=== PATIENT | female | born 1945 | race Caucasian/White ===

== ENCOUNTER 2019-06-13 15:22 | Emergency (ER) | payer MEDICARE, MEDICAID ==
[~2019-06-13] VITALS: Ht 172.7 cm; Wt 81.8 kg
[~2019-06-13 15:22] MED LIST: ASPI-1265 PO; ATOR10TA PO; CYCL-394 PO; NORCO10T PO; OMEP40CA13 PO
[2019-06-13] MEDS ORDERED: rabies vaccine (PCEC)/PF 2.5 unit kit IM ONE (16:15)
[2019-06-13] MEDS ORDERED: HYDROcodone/acetaminophen 5mg/325mg tablet PO ONE (16:15)
[2019-06-13] MEDS ORDERED: rabies immune globulin/PF 150 unit/ml inj IM ONE (16:15)
[2019-06-13] MEDS ORDERED: TETanus/Pertussis (Acell)/Diphther VAC/PF (Tdap-Adult) 0.5ml syringe IM ONE (16:15)
[2019-06-13] MEDS ORDERED: metroNIDAZOLE-Flagyl 500mg/NS 100 ML IV STA (16:42)
[2019-06-13] MEDS ORDERED: amox tr/potassium clavulanate 875/125mg TAB PO ONE (16:45)
[2019-06-13] MEDS ORDERED: CefTRIAXone 1000mg IM Kit (w/lidocaine diluent) IM ONE (16:45)
--- NOTE | 2019-06-13 16:45 | NUR ---
RABIES/TDAP EDUCATION PROVIDED.
[2019-06-13 17:01] LABS: BASOPHILS # (AUTO) 0.1 X10'3 (0-0.2); BASOPHILS % (AUTO) 0.9 % (0-1); EOSINOPHILS # (AUTO) 0.1 X10'3 (0-0.9); EOSINOPHILS % (AUTO) 0.9 % (0-6); HEMATOCRIT 34.8 % (35.0-45.0); HEMOGLOBIN 12.1 g/dl (12.0-16.0); LYMPHOCYTES # (AUTO) 1.9 X10'3 (1.1-4.8); LYMPHOCYTES % (AUTO) 26.5 % (21-51); MEAN CORPUSCULAR HEMOGLOBIN 32.6 PG (27.0-31.0); MEAN CORPUSCULAR HGB CONC 34.8 g/dL (33.0-36.5); MEAN CORPUSCULAR VOLUME 93.8 FL (78-98); MEAN PLATELET VOLUME 10.1 FL (7.4-10.4); MONOCYTES # (AUTO) 0.7 X10'3 (0-0.9); MONOCYTES % (AUTO) 9.3 % (2-12); NEUTROPHILS # (AUTO) 4.4 X10'3 (1.8-7.7); NEUTROPHILS % (AUTO) 62.4 % (42-75); PLATELET COUNT 236 X10'3 (140-440); RED BLOOD COUNT 3.71 X10'6 (4.20-5.60); RED CELL DISTRIBUTION WIDTH 13.3 % (11.5-14.5); WHITE BLOOD COUNT 7.1 X10'3 (4.5-11.0)
[2019-06-13 17:12] LABS: ALBUMIN 3.6 G/DL (3.4-5.0); ANION GAP 10 (8-16); BLOOD UREA NITROGEN 10 MG/DL (7-18); CALCIUM 8.9 MG/DL (8.5-10.1); CHLORIDE 106 MMOL/L (99-107); CREATININE 0.83 MG/DL (0.40-0.90); GLUCOSE 94 MG/DL (70-104); SODIUM 142 MMOL/L (135-145); TOTAL CARBON DIOXIDE 25.7 MMOL/L (24-32); eGFR 67 ML/MIN
[2019-06-13] MEDS ORDERED: CefTRIAXone/D5W-Rocephin 1gm 50 ML IV ONE (17:15)
[2019-06-13] MEDS ORDERED: potassium chloride 10mEq CAPSULE.SA PO ONE (17:25)
[2019-06-13] MEDS ORDERED: potassium Cl 10 mEq/100mL bag IV ONE (17:25)
[2019-06-13] MEDS ORDERED: potassium Cl 20 mEq SR tablet PO ONE (17:50)
[2019-06-13 17:57] VITALS: BP 122/60
[2019-06-13] MEDS ORDERED: HYDR-3965 PO (18:01)
[2019-06-13] MEDS ORDERED: AMOX-580 PO (18:01)
--- NOTE | 2019-06-13 18:39 | NUR ---
ASSUMED CARE OF PT FROM OBI Martinez RN. PT RECEIVING IV ABX, ONCE INFUSED HAS 1 HR INFUSION OF POTASSIUM 10 MEQ, THEN WILL BE DC READY. MED WAIT CURRENTLY.
[2019-06-14] MEDS ORDERED: SIMV40TA4 PO (13:53)
[2019-06-14] MEDS ORDERED: HYDR12.5 PO (13:53)
[2019-06-14] MEDS ORDERED: CHOL100046 PO (13:53)
[2019-06-14] MEDS ORDERED: OMEP-50 PO (13:53)
[2019-06-14] MEDS ORDERED: OXYB5TAB16 PO (13:53)
[2019-06-14] MEDS ORDERED: LISI10TA4 PO (13:53)
[2019-06-14] MEDS ORDERED: AMIT10TA6 PO (13:53)
== END 2019-06-13 20:00 | disposition home or self-care (01) ==
LOC: ER 15:23
DX: S61.531A Puncture wound without foreign body of right wrist, initial encounter (principal); S50.811A Abrasion of right forearm, initial encounter; L03.113 Cellulitis of right upper limb; E87.6 Hypokalemia; M19.90 Unspecified osteoarthritis, unspecified site; G89.29 Other chronic pain; E07.9 Disorder of thyroid, unspecified; Z86.73 Personal history of transient ischemic attack (TIA), and cerebral infarction without residual deficits; Z90.49 Acquired absence of other specified parts of digestive tract; Z98.890 Other specified postprocedural states; Z79.82 Long term (current) use of aspirin; Z79.2 Long term (current) use of antibiotics; Z79.899 Other long term (current) drug therapy; Z88.8 Allergy status to other drugs, medicaments and biological substances; W55.01XA Bitten by cat, initial encounter; Y93.89 Activity, other specified; Y92.89 Other specified places as the place of occurrence of the external cause; Y99.8 Other external cause status
CPT/HCPCS: 36415; 80048; 83605; 84145; 85025; 90375; 90471; 90472; 90675; 90715; 96365; 96367; 96368; 96372; 99284; J0696; J3480; J3490; 99283

== ENCOUNTER 2019-06-14 11:20 | Inpatient (IN) | payer MEDICARE, MEDICAID ==
[~2019-06-14] VITALS: Ht 172.7 cm; Wt 81.8 kg
[~2019-06-14 11:20] MED LIST changes: +AMOX-580 PO; +HYDR-3965 PO
[2019-06-14] MEDS ORDERED: normal saline 1000ML IV soln IV ONE (13:00)
[2019-06-14] MEDS ORDERED: piperacillin/tazo 4.5gm/100ml 100 ML IV ONE (13:00)
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
--- NOTE | 2019-06-14 13:21 | NUR ---
PER PRINCIPAL LAW CLERK MARCI: PATIENT MOVED TO ROOM 12 IN MAIN ER
[2019-06-14 13:31] LABS: BASOPHILS # (AUTO) 0.1 X10'3 (0-0.2); EOSINOPHILS # (AUTO) 0.1 X10'3 (0-0.9); EOSINOPHILS % (AUTO) 1.1 % (0-6); HEMATOCRIT 35.4 % (35.0-45.0); HEMOGLOBIN 12.2 g/dl (12.0-16.0); LYMPHOCYTES # (AUTO) 1.9 X10'3 (1.1-4.8); LYMPHOCYTES % (AUTO) 31.5 % (21-51); MEAN CORPUSCULAR HEMOGLOBIN 32.7 PG (27.0-31.0); MEAN CORPUSCULAR HGB CONC 34.3 g/dL (33.0-36.5); MEAN CORPUSCULAR VOLUME 95.3 FL (78-98); MEAN PLATELET VOLUME 10.9 FL (7.4-10.4); MONOCYTES # (AUTO) 0.5 X10'3 (0-0.9); MONOCYTES % (AUTO) 8.1 % (2-12); NEUTROPHILS # (AUTO) 3.4 X10'3 (1.8-7.7); NEUTROPHILS % (AUTO) 58.3 % (42-75); PLATELET COUNT 245 X10'3 (140-440); RED BLOOD COUNT 3.72 X10'6 (4.20-5.60); RED CELL DISTRIBUTION WIDTH 13.3 % (11.5-14.5); WHITE BLOOD COUNT 5.9 X10'3 (4.5-11.0)
[2019-06-14 13:41] LABS: PARTIAL THROMBOPLASTIN TIME 27 SECONDS (22-32)
[2019-06-14 13:44] LABS: ALANINE AMINOTRANSFERASE 25 U/L (12-78); ALBUMIN 3.9 G/DL (3.4-5.0); ALBUMIN/GLOBULIN RATIO 0.8 (1.1-1.5); ALKALINE PHOSPHATASE 76 IU/L (46-116); ANION GAP 15 (8-16); ASPARTATE AMINO TRANSFERASE 20 U/L (10-37); BILIRUBIN,TOTAL 0.7 MG/DL (0.1-1.0); CALCIUM 9.1 MG/DL (8.5-10.1); CHLORIDE 105 MMOL/L (99-107); CREATININE 0.98 MG/DL (0.40-0.90); GLUCOSE 97 MG/DL (70-104); MAGNESIUM 1.9 MG/DL (1.5-2.4); POTASSIUM 3.3 MMOL/L (3.5-5.1); SODIUM 142 MMOL/L (135-145); TOTAL PROTEIN 8.6 G/DL (6.4-8.2); eGFR 55 ML/MIN
[2019-06-14] MEDS ORDERED: HYDR12.5 PO (13:53)
[2019-06-14] MEDS ORDERED: CHOL100046 PO (13:53)
[2019-06-14] MEDS ORDERED: OXYB5TAB16 PO (13:53)
[2019-06-14] MEDS ORDERED: LISI10TA4 PO (13:53)
[2019-06-14] MEDS ORDERED: SIMV40TA4 PO (13:53)
[2019-06-14] MEDS ORDERED: OMEP-50 PO (13:53)
[2019-06-14] MEDS ORDERED: AMIT10TA6 PO (13:53)
[2019-06-14 14:26] LABS: BLOOD UREA NITROGEN 10 MG/DL (7-18); BUN/CREATININE RATIO 10.2 (6.6-38.0)
[2019-06-14] MEDS ORDERED: cyclobenzaprine 10mg tablet PO PRN (14:35)
[2019-06-14] MEDS ORDERED: bisacodyl 10mg suppository rectal RC PRN (14:40)
[2019-06-14] MEDS ORDERED: magnesium Cl slow-release 64mg tablet PO PRN (14:40)
[2019-06-14] MEDS ORDERED: acetaminophen 325mg tablet PO PRN ×2 (14:40)
[2019-06-14] MEDS ORDERED: diphenhydrAMINE 50 mg/ml inj IV PRN (14:40)
[2019-06-14] MEDS ORDERED: morphine 2 MG/ML inj. syringe IV PRN ×2 (14:40)
[2019-06-14] MEDS ORDERED: mag hydrox/Alum hydrox/simeth 30ml oral suspension PO PRN (14:40)
[2019-06-14] MEDS ORDERED: magnesium 2GM in 50ml NS 50 ML IV PRN (14:40)
[2019-06-14] MEDS ORDERED: magnesium hydroxide 30ml (MOM) UD suspension PO PRN (14:40)
[2019-06-14] MEDS ORDERED: potassium CL 10mEq/100ml bag 100 ML IV PRN ×2 (14:40)
[2019-06-14] MEDS ORDERED: acetaminophen 650mg rectal suppository RC PRN (14:40)
[2019-06-14] MEDS ORDERED: ondansetron/PF 4mg/2ml inj IV PRN (14:40)
[2019-06-14] MEDS ORDERED: magnesium 4gm in 100ml NS 100 ML IV PRN (14:40)
[2019-06-14] MEDS ORDERED: potassium Cl 20 mEq SR tablet PO PRN (14:40)
[2019-06-14] MEDS ORDERED: HYDROcodone/acetaminophen 5mg/325mg tablet PO PRN (14:40)
[2019-06-14] MEDS: K and/or MAG REPLACEMENT MC SCH (14:40)
[2019-06-14] MEDS ORDERED: diphenhydrAMINE 25mg capsule PO PRN (14:40)
[2019-06-14] MEDS: normal saline 1000ml 1,000 ML IV SCH (14:48)
[2019-06-14 15:34] LABS: HEMOGLOBIN A1C 5.7 % (4.5-6.2)
[2019-06-14 16:01] LABS: CLARITY,URINE CLOUDY (Clear); COLOR,URINE YELLOW (Yellow); GLUCOSE, URINE NEGATIVE (Neg); KETONES,URINE NEGATIVE (Neg); LEUKOCYTE ESTERASE ,URINE MODERATE (Neg); NITRITES, URINE NEGATIVE (Neg); OCCULT BLOOD,URINE NEGATIVE (Neg); PROTEIN,URINE NEGATIVE (Neg); UROBILINOGEN,URINE 0.2 E.U/dL (0.2-1.0)
[2019-06-14 16:07] LABS: UA COLLECTION TYPE CLN CATCH MIDSTREAM
[2019-06-14 16:08] LABS: BACTERIA,URINE 1+ /HPF (Neg); RBC,URINE NONE SEEN /HPF (0-2); SQUAMOUS EPITHELIAL CELL,UR MODERATE /LPF (FEW)
[2019-06-14 16:09] LABS: MUCUS STRANDS MODERATE /LPF (Neg)
[2019-06-14 18:00] VITALS: BP 132/68
--- NOTE | 2019-06-14 18:05 | NUR ---
Patient in room ORTHO 4007. I have received report from Lulu CACERES and had the opportunity to ask questions and assume patient care.
[2019-06-14] MEDS: HYDROcodone/acetaminophen 10/325mg tab PO PRN (18:49)
[2019-06-14] MEDS: potassium Cl 20 mEq SR tablet PO PRN (18:49)
[2019-06-14] MEDS: piperacillin/tazo 3.375gm/50ml 50 ML IV SCH (18:50)
[2019-06-14] MEDS: amitriptyline 10mg tablet PO SCH (19:18)
[2019-06-14] MEDS: heparin, porcine 5000 units/ml vial SQ SCH (19:18)
[2019-06-14] MEDS: oxybutynin 5mg tablet PO SCH (20:26)
[2019-06-14] MEDS ORDERED: temazepam 15mg capsule PO PRN (21:00)
[2019-06-14 21:40] VITALS: BP 113/54
[2019-06-15] MEDS: potassium Cl 20 mEq SR tablet PO PRN (00:30)
[2019-06-15] MEDS: piperacillin/tazo 3.375gm/50ml 50 ML IV SCH ×3 (01:17→19:46)
[2019-06-15] MEDS: VANCOmycin 1250MG/NS 250ml Bag 250 ML IV SCH ×2 (01:24→14:48)
[2019-06-15 06:00] VITALS: BP 113/55
[2019-06-15 06:14] LABS: BASOPHILS # (AUTO) 0.1 X10'3 (0-0.2); BASOPHILS % (AUTO) 1.3 % (0-1); EOSINOPHILS # (AUTO) 0.2 X10'3 (0-0.9); EOSINOPHILS % (AUTO) 3.9 % (0-6); HEMATOCRIT 29.1 % (35.0-45.0); HEMOGLOBIN 9.9 g/dl (12.0-16.0); LYMPHOCYTES # (AUTO) 1.9 X10'3 (1.1-4.8); LYMPHOCYTES % (AUTO) 47.9 % (21-51); MEAN CORPUSCULAR HEMOGLOBIN 32.7 PG (27.0-31.0); MEAN CORPUSCULAR HGB CONC 34.2 g/dL (33.0-36.5); MEAN CORPUSCULAR VOLUME 95.6 FL (78-98); MEAN PLATELET VOLUME 10.6 FL (7.4-10.4); MONOCYTES # (AUTO) 0.4 X10'3 (0-0.9); MONOCYTES % (AUTO) 10.7 % (2-12); NEUTROPHILS # (AUTO) 1.4 X10'3 (1.8-7.7); NEUTROPHILS % (AUTO) 36.2 % (42-75); PLATELET COUNT 182 X10'3 (140-440); RED BLOOD COUNT 3.04 X10'6 (4.20-5.60); RED CELL DISTRIBUTION WIDTH 13.4 % (11.5-14.5)
--- NOTE | 2019-06-15 06:25 | NUR ---
Problems reprioritized. Patient report given, questions answered & plan of care reviewed with Chuck CACERES.
--- NOTE | 2019-06-15 06:36 | NUR ---
Patient in room ORTHO 4007. I have received report from An CACERES and had the opportunity to ask questions and assume patient care.
[2019-06-15 06:46] LABS: ALANINE AMINOTRANSFERASE 20 U/L (12-78); ALBUMIN 2.7 G/DL (3.4-5.0); ALBUMIN/GLOBULIN RATIO 0.8 (1.1-1.5); ALKALINE PHOSPHATASE 55 IU/L (46-116); ANION GAP 8 (8-16); ASPARTATE AMINO TRANSFERASE 16 U/L (10-37); BILIRUBIN,TOTAL 0.4 MG/DL (0.1-1.0); BLOOD UREA NITROGEN 10 MG/DL (7-18); BUN/CREATININE RATIO 11.4 (6.6-38.0); CALCIUM 8.2 MG/DL (8.5-10.1); CHLORIDE 113 MMOL/L (99-107); CHOL/HDL RATIO 3.4 (0.00-4.99); CHOLESTEROL 98 MG/DL (0-200); CREATININE 0.88 MG/DL (0.40-0.90); GLUCOSE 87 MG/DL (70-104); HDL CHOLESTEROL 29 MG/DL (35-60); LDL CHOLESTEROL 55 MG/DL (50-100); POTASSIUM 3.7 MMOL/L (3.5-5.1); SODIUM 145 MMOL/L (135-145); TOTAL CARBON DIOXIDE 24.4 MMOL/L (24-32); TOTAL PROTEIN 6.3 G/DL (6.4-8.2); TRIGLYCERIDES 72 MG/DL (20-135); eGFR 63 ML/MIN
[2019-06-15 07:06] LABS: PLATELET ESTIMATE NORMAL
[2019-06-15 07:08] LABS: ANISOCYTOSIS 1+; POLYCHROMASIA 1+
[2019-06-15] MEDS: oxybutynin 5mg tablet PO SCH ×3 (07:10→20:40)
[2019-06-15] MEDS: amitriptyline 10mg tablet PO SCH ×2 (07:10→20:40)
[2019-06-15] MEDS: atorvastatin 10mg tablet PO SCH (07:10)
[2019-06-15] MEDS: pantoprazole 40mg Tablet.DR PO SCH (07:10)
[2019-06-15] MEDS: vitamin D (cholecalciferol) 1,000 unit tablet PO SCH (07:11)
[2019-06-15] MEDS: HYDROchlorothiazide 12.5mg capsule PO SCH (07:11)
[2019-06-15] MEDS: lisinopril 10 MG tablet PO SCH (07:11)
[2019-06-15] MEDS: K and/or MAG REPLACEMENT MC SCH (07:12)
[2019-06-15] MEDS: HYDROcodone/acetaminophen 10/325mg tab PO PRN ×3 (07:12→22:39)
[2019-06-15] MEDS: heparin, porcine 5000 units/ml vial SQ SCH ×2 (07:12→20:40)
[2019-06-15] MEDS: normal saline 1000ml 1,000 ML IV SCH ×2 (07:20→10:36)
[2019-06-15 10:00] VITALS: BP 84/52
--- NOTE | 2019-06-15 16:37 | NUR ---
Chuck 2181 Re: Chris. only able to do a 3 sequence half study MRI. unable to tolerate positioning. Do you want MRI to submit study?
[2019-06-15 18:00] VITALS: BP 108/57
--- NOTE | 2019-06-15 18:38 | NUR ---
Problems reprioritized. Patient report given, questions answered & plan of care reviewed with An CACERES.
--- NOTE | 2019-06-15 18:40 | NUR ---
Patient in room ORTHO 4007. I have received report from Chuck CACERES and had the opportunity to ask questions and assume patient care.
[2019-06-15 22:00] VITALS: BP 122/57
[2019-06-16] MEDS: piperacillin/tazo 3.375gm/50ml 50 ML IV SCH ×2 (00:08→08:10)
[2019-06-16] MEDS: VANCOmycin 1250MG/NS 250ml Bag 250 ML IV SCH (01:55)
[2019-06-16] MEDS: HYDROcodone/acetaminophen 10/325mg tab PO PRN ×2 (03:11→09:56)
[2019-06-16 06:00] VITALS: BP 134/58
[2019-06-16 06:10] LABS: BASOPHILS % (AUTO) 1.1 % (0-1); EOSINOPHILS # (AUTO) 0.3 X10'3 (0-0.9); EOSINOPHILS % (AUTO) 6.6 % (0-6); HEMATOCRIT 28.8 % (35.0-45.0); HEMOGLOBIN 9.9 g/dl (12.0-16.0); LYMPHOCYTES # (AUTO) 1.9 X10'3 (1.1-4.8); MEAN CORPUSCULAR HEMOGLOBIN 32.4 PG (27.0-31.0); MEAN CORPUSCULAR HGB CONC 34.5 g/dL (33.0-36.5); MEAN CORPUSCULAR VOLUME 93.9 FL (78-98); MEAN PLATELET VOLUME 10.9 FL (7.4-10.4); MONOCYTES # (AUTO) 0.4 X10'3 (0-0.9); MONOCYTES % (AUTO) 9.4 % (2-12); NEUTROPHILS # (AUTO) 1.2 X10'3 (1.8-7.7); NEUTROPHILS % (AUTO) 31.9 % (42-75); PLATELET COUNT 188 X10'3 (140-440); RED BLOOD COUNT 3.06 X10'6 (4.20-5.60); RED CELL DISTRIBUTION WIDTH 13.4 % (11.5-14.5); WHITE BLOOD COUNT 3.8 X10'3 (4.5-11.0)
--- NOTE | 2019-06-16 06:12 | NUR ---
received report from agustina barker
--- NOTE | 2019-06-16 06:18 | NUR ---
Problems reprioritized. Patient report given, questions answered & plan of care reviewed with Raquel CACERES.
[2019-06-16 06:20] LABS: ALANINE AMINOTRANSFERASE 16 U/L (12-78); ALBUMIN 2.5 G/DL (3.4-5.0); ALBUMIN/GLOBULIN RATIO 0.7 (1.1-1.5); ALKALINE PHOSPHATASE 51 IU/L (46-116); ANION GAP 8 (8-16); ASPARTATE AMINO TRANSFERASE 11 U/L (10-37); BILIRUBIN,TOTAL 0.3 MG/DL (0.1-1.0); BLOOD UREA NITROGEN 6 MG/DL (7-18); BUN/CREATININE RATIO 7.3 (6.6-38.0); CALCIUM 8.1 MG/DL (8.5-10.1); CHLORIDE 110 MMOL/L (99-107); CREATININE 0.82 MG/DL (0.40-0.90); GLUCOSE 102 MG/DL (70-104); MAGNESIUM 1.7 MG/DL (1.5-2.4); PHOSPHORUS 3.9 MG/DL (2.3-4.5); POTASSIUM 3.4 MMOL/L (3.5-5.1); SODIUM 143 MMOL/L (135-145); TOTAL CARBON DIOXIDE 25.1 MMOL/L (24-32); TOTAL PROTEIN 5.9 G/DL (6.4-8.2); eGFR 68 ML/MIN
[2019-06-16] MEDS: K and/or MAG REPLACEMENT MC SCH (07:44)
[2019-06-16] MEDS: pantoprazole 40mg Tablet.DR PO SCH (07:56)
[2019-06-16] MEDS: vitamin D (cholecalciferol) 1,000 unit tablet PO SCH (07:57)
[2019-06-16] MEDS: HYDROchlorothiazide 12.5mg capsule PO SCH (07:57)
[2019-06-16] MEDS: oxybutynin 5mg tablet PO SCH ×2 (07:57→12:58)
[2019-06-16] MEDS: amitriptyline 10mg tablet PO SCH (07:59)
[2019-06-16] MEDS: atorvastatin 10mg tablet PO SCH (07:59)
[2019-06-16] MEDS: lisinopril 10 MG tablet PO SCH (08:01)
[2019-06-16] MEDS: potassium Cl 20 mEq SR tablet PO PRN ×2 (08:02→12:18)
[2019-06-16] MEDS: heparin, porcine 5000 units/ml vial SQ SCH (08:05)
[2019-06-16] MEDS: normal saline 1000ml 1,000 ML IV SCH ×2 (08:08→09:48)
[2019-06-16] MEDS ORDERED: AMOX-580 PO ×2 (09:02→11:06)
[2019-06-16 10:00] VITALS: BP 128/57
--- NOTE | 2019-06-16 13:22 | NUR ---
PT D/C WITH INSTRUCTIONS, UNDERSTANDING OF INSTRUCTIONS AND W/ALL BELONGINGS IN WHEELCHAIR TO PRIVATE VEHICLE TO GO HOME AND F/U W/PCP [facility] 2ND HALF OF RABIES VACCINE
[2019-06-16] MEDS ORDERED: VANCOMYCIN LEVEL IV ONE (13:30)
== END 2019-06-16 13:10 | disposition home or self-care (01) | DRG 603 ==
LOC: ER 11:20 → ORTHO 4S 16:01
PROVIDERS: ADMIT Family Medicine; ATTEND Family Medicine
DX: L03.113 Cellulitis of right upper limb (principal); E78.5 Hyperlipidemia, unspecified; F32.9 Major depressive disorder, single episode, unspecified; I10 Essential (primary) hypertension; K21.9 Gastro-esophageal reflux disease without esophagitis; M79.7 Fibromyalgia; G62.9 Polyneuropathy, unspecified; G89.29 Other chronic pain; M19.90 Unspecified osteoarthritis, unspecified site; Z60.2 Problems related to living alone; M54.9 Dorsalgia, unspecified; W55.01XA Bitten by cat, initial encounter; Z88.8 Allergy status to other drugs, medicaments and biological substances; Z79.899 Other long term (current) drug therapy; Z86.73 Personal history of transient ischemic attack (TIA), and cerebral infarction without residual deficits; Z90.49 Acquired absence of other specified parts of digestive tract; Y93.89 Activity, other specified; Y92.89 Other specified places as the place of occurrence of the external cause; Y99.8 Other external cause status; Z81.1 Family history of alcohol abuse and dependence
CPT/HCPCS: 36415; 71045; 73218; 80053; 80061; 81001; 83036; 83605; 83735; 84100; 84145; 85025; 85610; 85730; 87040; 87081; 87088; 93005; 96361; 96365; 96368; 97110; 97116; 97162; 99285; G0378; J1644; J2543; J3370; J7030

== ENCOUNTER 2019-06-20 14:20 | Emergency (ER) | payer MEDICARE, MEDICAID ==
[~2019-06-20] VITALS: Ht 172.7 cm; Wt 82.7 kg
[~2019-06-20 14:20] MED LIST changes: +AMIT10TA6 PO; -ASPI-1265 PO; -ATOR10TA PO; +CHOL100046 PO; -HYDR-3965 PO; +HYDR12.5 PO; +LISI10TA4 PO; +OMEP-50 PO; -OMEP40CA13 PO; +OXYB5TAB16 PO; +SIMV-45 PO
[2019-06-20 14:22] VITALS: BP 136/87
[2019-06-20] MEDS ORDERED: rabies vaccine (PCEC)/PF 2.5 unit kit IMVAC ONE (15:10)
[2019-06-20] MEDS ORDERED: HYDROcodone/acetaminophen 5mg/325mg tablet PO ONE (15:10)
== END 2019-06-20 15:59 | disposition home or self-care (01) ==
LOC: ER 14:20
DX: S41.151D Open bite of right upper arm, subsequent encounter (principal); Z23 Encounter for immunization; M19.90 Unspecified osteoarthritis, unspecified site; G89.29 Other chronic pain; M79.7 Fibromyalgia; Z86.73 Personal history of transient ischemic attack (TIA), and cerebral infarction without residual deficits; Z90.49 Acquired absence of other specified parts of digestive tract; Z98.890 Other specified postprocedural states; Z60.2 Problems related to living alone; Z88.8 Allergy status to other drugs, medicaments and biological substances; Z79.82 Long term (current) use of aspirin; Z79.899 Other long term (current) drug therapy; W55.01XD Bitten by cat, subsequent encounter
CPT/HCPCS: 90471; 90675; 99284

== ENCOUNTER 2020-05-12 20:30 | Emergency (ER) | payer BC, MEDICAID ==
[~2020-05-12] VITALS: Ht 170.2 cm; Wt 84.6 kg
[~2020-05-12 20:30] MED LIST changes: -AMOX-580 PO
[2020-05-12 21:42] LABS: BASOPHILS % (AUTO) 0.7 % (0-1); EOSINOPHILS # (AUTO) 0.2 X10'3 (0-0.9); HEMATOCRIT 33.1 % (35.0-45.0); HEMOGLOBIN 11.5 g/dl (12.0-16.0); LYMPHOCYTES # (AUTO) 1.8 X10'3 (1.1-4.8); LYMPHOCYTES % (AUTO) 30.3 % (21-51); MEAN CORPUSCULAR HEMOGLOBIN 34.1 PG (27.0-31.0); MEAN CORPUSCULAR HGB CONC 34.6 g/dL (33.0-36.5); MEAN CORPUSCULAR VOLUME 98.4 FL (78-98); MEAN PLATELET VOLUME 9.8 FL (7.4-10.4); MONOCYTES # (AUTO) 0.7 X10'3 (0-0.9); MONOCYTES % (AUTO) 11.4 % (2-12); NEUTROPHILS # (AUTO) 3.1 X10'3 (1.8-7.7); NEUTROPHILS % (AUTO) 53.6 % (42-75); PLATELET COUNT 179 X10'3 (140-440); RED BLOOD COUNT 3.37 X10'6 (4.20-5.60); RED CELL DISTRIBUTION WIDTH 13.1 % (11.5-14.5); WHITE BLOOD COUNT 5.8 X10'3 (4.5-11.0)
[2020-05-12 21:52] LABS: ALANINE AMINOTRANSFERASE 24 U/L (12-78); ALBUMIN 3.6 G/DL (3.4-5.0); ALBUMIN/GLOBULIN RATIO 0.9 (1.1-1.5); ALKALINE PHOSPHATASE 69 IU/L (46-116); ANION GAP 6 (8-16); ASPARTATE AMINO TRANSFERASE 19 U/L (10-37); BILIRUBIN,TOTAL 0.3 MG/DL (0.1-1.0); BLOOD UREA NITROGEN 10 MG/DL (7-18); CHLORIDE 100 MMOL/L (99-107); CREATININE 0.91 MG/DL (0.40-0.90); GLUCOSE 101 MG/DL (70-104); POTASSIUM 3.4 MMOL/L (3.5-5.1); SODIUM 139 MMOL/L (135-145); TOTAL CARBON DIOXIDE 33.5 MMOL/L (24-32); TOTAL PROTEIN 7.5 G/DL (6.4-8.2); eGFR 60 ML/MIN
[2020-05-12 22:01] LABS: TROPONIN I < 0.04 NG/ML (0.0-0.05)
[2020-05-12 22:20] VITALS: BP 124/68
[2020-05-12] MEDS ORDERED: furosemide 10 MG/1 ML 10ml inj IV ONE (22:20)
[2020-05-12] MEDS ORDERED: sulfamethoxazole/trimethoprim DS (800/160mg) tablet PO ONE (22:25)
[2020-05-12] MEDS ORDERED: piperacillin/tazo 3.375gm/50ml 50 ML IV ONE (22:25)
[2020-05-12] MEDS ORDERED: BACDS PO (22:29)
[2020-05-12] MEDS ORDERED: FURO-150 PO (22:29)
[2020-05-12] MEDS ORDERED: CEPH500C5 PO (22:29)
== END 2020-05-12 23:11 | disposition home or self-care (01) ==
LOC: ER 20:31
DX: L03.116 Cellulitis of left lower limb (principal); M79.89 Other specified soft tissue disorders; G62.9 Polyneuropathy, unspecified; M19.90 Unspecified osteoarthritis, unspecified site; G89.29 Other chronic pain; Z86.73 Personal history of transient ischemic attack (TIA), and cerebral infarction without residual deficits; Z90.49 Acquired absence of other specified parts of digestive tract; Z98.890 Other specified postprocedural states; Z88.8 Allergy status to other drugs, medicaments and biological substances; Z79.899 Other long term (current) drug therapy
CPT/HCPCS: 36415; 80053; 83880; 84484; 85025; 96365; 96375; 99284; J1940; J2543; 96361; 96374; 99283

== ENCOUNTER 2021-11-14 14:20 | Inpatient (IN) | payer BC, MEDICAID ==
[~2021-11-14] VITALS: Ht 170.2 cm; Wt 85.0 kg
[~2021-11-14 14:20] MED LIST changes: +LISI10TA27 PO; -LISI10TA4 PO; -OMEP-50 PO; +OMEP20CA16 PO
[2021-11-14 15:09] LABS: ALANINE AMINOTRANSFERASE 27 U/L (12-78); ALBUMIN 3.5 G/DL (3.4-5.0); ALBUMIN/GLOBULIN RATIO 1.1 (1.1-1.5); ALKALINE PHOSPHATASE 66 IU/L (46-116); ANION GAP 6 (8-16); ASPARTATE AMINO TRANSFERASE 20 U/L (10-37); BASOPHILS % (AUTO) 0.5 % (0-1); BILIRUBIN,TOTAL 0.3 MG/DL (0.1-1.0); BLOOD UREA NITROGEN 18 MG/DL (7-18); BUN/CREATININE RATIO 18.2 (6.6-38.0); CALCIUM 8.3 MG/DL (8.5-10.1); CHLORIDE 102 MMOL/L (99-107); CREATININE 0.99 MG/DL (0.40-0.90); EOSINOPHILS # (AUTO) 0.1 X10'3 (0-0.9); EOSINOPHILS % (AUTO) 2.9 % (0-6); GLUCOSE 118 MG/DL (70-104); HEMATOCRIT 37.1 % (35.0-45.0); HEMOGLOBIN 12.4 g/dl (12.0-16.0); LYMPHOCYTES # (AUTO) 1.9 X10'3 (1.1-4.8); LYMPHOCYTES % (AUTO) 43.9 % (21-51); MEAN CORPUSCULAR HEMOGLOBIN 31.9 PG (27.0-31.0); MEAN CORPUSCULAR HGB CONC 33.3 g/dL (33.0-36.5); MEAN CORPUSCULAR VOLUME 95.8 FL (78-98); MEAN PLATELET VOLUME 10.6 FL (7.4-10.4); MONOCYTES # (AUTO) 0.4 X10'3 (0-0.9); MONOCYTES % (AUTO) 10.1 % (2-12); NEUTROPHILS # (AUTO) 1.9 X10'3 (1.8-7.7); NEUTROPHILS % (AUTO) 42.6 % (42-75); PLATELET COUNT 186 X10'3 (140-440); POTASSIUM 3.8 MMOL/L (3.5-5.1); RED BLOOD COUNT 3.87 X10'6 (4.20-5.60); RED CELL DISTRIBUTION WIDTH 13.2 % (11.5-14.5); SODIUM 139 MMOL/L (135-145); TOTAL CARBON DIOXIDE 30.7 MMOL/L (24-32); TOTAL PROTEIN 6.8 G/DL (6.4-8.2); WHITE BLOOD COUNT 4.4 X10'3 (4.5-11.0); eGFR 54 ML/MIN
[2021-11-14] MEDS ORDERED: normal saline 1000ML IV soln IVB ONE (16:10)
[2021-11-14 18:14] LABS: CLARITY,URINE CLOUDY (Clear); COLOR,URINE YELLOW (Yellow); GLUCOSE, URINE NEGATIVE (Neg); KETONES,URINE NEGATIVE (Neg); LEUKOCYTE ESTERASE ,URINE MODERATE (Neg); NITRITES, URINE POSITIVE (Neg); OCCULT BLOOD,URINE TRACE-INTACT (Neg); PROTEIN,URINE NEGATIVE (Neg); UROBILINOGEN,URINE 0.2 E.U/dL (0.2-1.0)
[2021-11-14 18:16] LABS: UA COLLECTION TYPE NON-SPECIFIED
[2021-11-14 18:19] LABS: BACTERIA,URINE 4+ /HPF (Neg); RBC,URINE 0-2 /HPF (0-2); SQUAMOUS EPITHELIAL CELL,UR FEW /LPF (FEW); WBC,URINE 50-100 /HPF (0-4)
[2021-11-14] MEDS ORDERED: AMIT150T PO (19:27)
[2021-11-14] MEDS ORDERED: CALC-723 PO (19:27)
[2021-11-14] MEDS ORDERED: DULO30CA52 PO (19:27)
[2021-11-14] MEDS ORDERED: CefTRIAXone 2gm/D5W 50ml BAG 50 ML IV ONE (19:50)
[2021-11-14] MEDS ORDERED: potassium Cl 20 mEq SR tablet PO PRN ×2 (20:35)
[2021-11-14] MEDS ORDERED: potassium CL 10mEq/100ml bag 100 ML IV PRN (20:35)
[2021-11-14] MEDS ORDERED: magnesium Cl slow-release 64mg tablet PO PRN (20:35)
[2021-11-14] MEDS ORDERED: magnesium 4gm in 100ml NS 100 ML IV PRN (20:35)
[2021-11-14] MEDS ORDERED: acetaminophen 325mg tablet PO PRN ×2 (20:35)
[2021-11-14] MEDS ORDERED: magnesium 2GM in 50ml NS 50 ML IV PRN (20:35)
[2021-11-14] MEDS ORDERED: ondansetron/PF 4mg/2ml inj IV PRN (20:35)
[2021-11-14] MEDS: normal saline 1000ml 1,000 ML IV SCH (20:45)
[2021-11-14] MEDS ORDERED: HYDR-3972 PO (21:03)
[2021-11-14] MEDS ORDERED: CYCL-1 PO (21:03)
[2021-11-14] MEDS: HYDROcodone/acetaminophen 5mg/325mg tablet PO PRN (23:52)
[2021-11-15] VITALS (10 sets, daily range): BP systolic 91–132; BP diastolic 39–86
[2021-11-15 02:06] LABS: BASOPHILS % (AUTO) 0.6 % (0-1); EOSINOPHILS # (AUTO) 0.1 X10'3 (0-0.9); EOSINOPHILS % (AUTO) 2.6 % (0-6); HEMATOCRIT 34.7 % (35.0-45.0); HEMOGLOBIN 11.6 g/dl (12.0-16.0); LYMPHOCYTES # (AUTO) 2.1 X10'3 (1.1-4.8); LYMPHOCYTES % (AUTO) 43.8 % (21-51); MEAN CORPUSCULAR HEMOGLOBIN 31.9 PG (27.0-31.0); MEAN CORPUSCULAR HGB CONC 33.4 g/dL (33.0-36.5); MEAN CORPUSCULAR VOLUME 95.5 FL (78-98); MEAN PLATELET VOLUME 10.2 FL (7.4-10.4); MONOCYTES # (AUTO) 0.5 X10'3 (0-0.9); MONOCYTES % (AUTO) 10.3 % (2-12); NEUTROPHILS % (AUTO) 42.7 % (42-75); PLATELET COUNT 171 X10'3 (140-440); RED BLOOD COUNT 3.63 X10'6 (4.20-5.60); RED CELL DISTRIBUTION WIDTH 13.3 % (11.5-14.5); WHITE BLOOD COUNT 4.8 X10'3 (4.5-11.0)
[2021-11-15 02:23] LABS: ALANINE AMINOTRANSFERASE 26 U/L (12-78); ALBUMIN 3.2 G/DL (3.4-5.0); ALBUMIN/GLOBULIN RATIO 1.1 (1.1-1.5); ALKALINE PHOSPHATASE 62 IU/L (46-116); ANION GAP 8 (8-16); ASPARTATE AMINO TRANSFERASE 20 U/L (10-37); BILIRUBIN,TOTAL 0.2 MG/DL (0.1-1.0); BLOOD UREA NITROGEN 15 MG/DL (7-18); BUN/CREATININE RATIO 19.5 (6.6-38.0); CALCIUM 8.1 MG/DL (8.5-10.1); CHLORIDE 106 MMOL/L (99-107); CREATININE 0.77 MG/DL (0.40-0.90); GLUCOSE 95 MG/DL (70-104); POTASSIUM 3.8 MMOL/L (3.5-5.1); SODIUM 141 MMOL/L (135-145); TOTAL CARBON DIOXIDE 26.8 MMOL/L (24-32); TOTAL PROTEIN 6.2 G/DL (6.4-8.2); eGFR 73 ML/MIN
--- NOTE | 2021-11-15 03:18 | NUR ---
Patient in room ED 7, to be admitted to 301. I have received report from ED RN Lauren, and had the opportunity to ask questions and assume patient care.
--- NOTE | 2021-11-15 06:30 | NUR ---
Patient in room PCU 3016. I have received report from MORRIS Andrews and had the opportunity to ask questions and assume patient care.
--- NOTE | 2021-11-15 06:47 | NUR ---
Patient in room PCU 3016. I have received report from Juliana CACERES and had the opportunity to ask questions and assume patient care.
[2021-11-15] MEDS: K and/or MAG REPLACEMENT MC SCH ×2 (08:00→19:24)
[2021-11-15] MEDS ORDERED: HYDROchlorothiazide 12.5mg capsule PO SCH (08:00)
[2021-11-15] MEDS ORDERED: lisinopril 10 MG tablet PO SCH (08:00)
[2021-11-15] MEDS: atorvastatin 20mg tablet PO SCH (08:40)
[2021-11-15] MEDS: CefTRIAXone inj 2,000 MG in dextrose 5%-water 100 ML IV SCH (08:40)
[2021-11-15] MEDS: pantoprazole 40mg Tablet.DR PO SCH (08:40)
[2021-11-15] MEDS: HYDROcodone/acetaminophen 5mg/325mg tablet PO PRN (08:40)
[2021-11-15] MEDS: heparin, porcine 5000 units/ml vial SQ SCH ×2 (08:42→21:03)
[2021-11-15] MEDS: normal saline 1000ml 1,000 ML IV SCH ×2 (12:29→21:08)
[2021-11-15] MEDS: morphine 2 MG/ML inj. syringe IV PRN ×2 (15:19→21:16)
[2021-11-15] MEDS ORDERED: COVID-19 VAC, TRIS(PFIZER)/PF 30 MCG/0.3 ML VIAL IMVAC ONE (15:35)
--- NOTE | 2021-11-15 18:20 | NUR ---
Problems reprioritized. Patient report given, questions answered & plan of care reviewed with Juliana CACERES.
[2021-11-15] MEDS ORDERED: amitriptyline 50mg tablet PO SCH ×2 (21:00)
[2021-11-16 02:00] VITALS: BP 149/73
[2021-11-16] MEDS: HYDROcodone/acetaminophen 5mg/325mg tablet PO PRN (05:08)
--- NOTE | 2021-11-16 06:13 | NUR ---
Problems reprioritized. Patient report given, questions answered & plan of care reviewed with MORRIS Trejo and RN Charty.
[2021-11-16 07:32] LABS: BASOPHILS % (AUTO) 0.6 % (0-1); EOSINOPHILS # (AUTO) 0.1 X10'3 (0-0.9); EOSINOPHILS % (AUTO) 2.4 % (0-6); HEMOGLOBIN 11.6 g/dl (12.0-16.0); LYMPHOCYTES # (AUTO) 0.8 X10'3 (1.1-4.8); LYMPHOCYTES % (AUTO) 17.1 % (21-51); MEAN CORPUSCULAR HEMOGLOBIN 32.3 PG (27.0-31.0); MEAN CORPUSCULAR HGB CONC 34.1 g/dL (33.0-36.5); MEAN CORPUSCULAR VOLUME 94.9 FL (78-98); MEAN PLATELET VOLUME 10.8 FL (7.4-10.4); MONOCYTES # (AUTO) 0.3 X10'3 (0-0.9); NEUTROPHILS # (AUTO) 3.4 X10'3 (1.8-7.7); NEUTROPHILS % (AUTO) 72.9 % (42-75); PLATELET COUNT 157 X10'3 (140-440); RED BLOOD COUNT 3.58 X10'6 (4.20-5.60); RED CELL DISTRIBUTION WIDTH 13.1 % (11.5-14.5); WHITE BLOOD COUNT 4.7 X10'3 (4.5-11.0)
[2021-11-16 07:55] LABS: ALANINE AMINOTRANSFERASE 23 U/L (12-78); ALBUMIN 3.2 G/DL (3.4-5.0); ALKALINE PHOSPHATASE 63 IU/L (46-116); ANION GAP 8 (8-16); ASPARTATE AMINO TRANSFERASE 16 U/L (10-37); BILIRUBIN,TOTAL 0.3 MG/DL (0.1-1.0); BLOOD UREA NITROGEN 13 MG/DL (7-18); BUN/CREATININE RATIO 15.1 (6.6-38.0); CALCIUM 8.4 MG/DL (8.5-10.1); CHLORIDE 106 MMOL/L (99-107); CREATININE 0.86 MG/DL (0.40-0.90); GLUCOSE 101 MG/DL (70-104); POTASSIUM 3.9 MMOL/L (3.5-5.1); SODIUM 142 MMOL/L (135-145); TOTAL CARBON DIOXIDE 27.9 MMOL/L (24-32); TOTAL PROTEIN 6.5 G/DL (6.4-8.2); eGFR 64 ML/MIN
[2021-11-16 08:00] VITALS: BP_SYST 137; BP_SYST 139; BP_SYST 140; BP_DIAS 47; BP_DIAS 75; BP_DIAS 77; BP_DIAS 85
[2021-11-16] MEDS: CefTRIAXone inj 2,000 MG in dextrose 5%-water 100 ML IV SCH (08:00)
[2021-11-16] MEDS: K and/or MAG REPLACEMENT MC SCH (08:00)
[2021-11-16] MEDS: pantoprazole 40mg Tablet.DR PO SCH (08:21)
[2021-11-16] MEDS: atorvastatin 20mg tablet PO SCH (08:21)
[2021-11-16] MEDS: heparin, porcine 5000 units/ml vial SQ SCH (08:28)
[2021-11-16] MEDS: normal saline 1000ml 1,000 ML IV SCH (08:35)
[2021-11-16 09:14] VITALS: BP 152/75
[2021-11-16] MEDS: morphine 2 MG/ML inj. syringe IV PRN (09:52)
[2021-11-16] MEDS ORDERED: AMIT-189 PO (10:46)
[2021-11-16 12:09] VITALS: BP 118/70
[2021-11-16 15:00] VITALS: BP 112/61
== END 2021-11-16 18:08 | disposition home or self-care (01) | DRG 312 ==
LOC: ER 14:21 → ED HOLD 20:42 → PCU 3S 11-15 03:35
PROVIDERS: ADMIT Internal Medicine; ATTEND Family Medicine
PROC: XW023U6 Introduction of COVID-19 Vaccine into Muscle, Percutaneous Approach, New Technology Group 6 (ICD-10-PCS; principal; 2021-11-15)
DX: I95.1 Orthostatic hypotension (principal); N39.0 Urinary tract infection, site not specified; R32 Unspecified urinary incontinence; E78.00 Pure hypercholesterolemia, unspecified; G89.29 Other chronic pain; K21.9 Gastro-esophageal reflux disease without esophagitis; M19.90 Unspecified osteoarthritis, unspecified site; Z60.2 Problems related to living alone; M54.9 Dorsalgia, unspecified; E78.5 Hyperlipidemia, unspecified; G62.9 Polyneuropathy, unspecified; I10 Essential (primary) hypertension; M79.7 Fibromyalgia; Z86.73 Personal history of transient ischemic attack (TIA), and cerebral infarction without residual deficits; Z90.49 Acquired absence of other specified parts of digestive tract; Z91.81 History of falling; Z23 Encounter for immunization; Z88.8 Allergy status to other drugs, medicaments and biological substances
CPT/HCPCS: 36415; 70544; 70551; 71045; 80053; 81001; 83605; 83880; 84484; 85025; 87040; 87077; 87088; 87186; 93005; 93306; 93880; 97110; 97116; 97161; 97530; 99285; G0378; J0696; J1644; J2270; J7030; J7060

== ENCOUNTER 2021-12-12 10:45 | Emergency (ER) | payer BC, MEDICAID ==
[~2021-12-12] VITALS: Ht 172.7 cm; Wt 80.9 kg
[~2021-12-12 10:45] MED LIST changes: +AMIT-189 PO; -AMIT10TA6 PO; +CALC-723 PO; -CYCL-394 PO; +DULO30CA52 PO; +HYDR-3972 PO; -HYDR12.5 PO; -LISI10TA27 PO; -NORCO10T PO
[2021-12-12] MEDS ORDERED: normal saline 1000ML IV soln IVB ONE (13:20)
[2021-12-12 13:58] LABS: BASOPHILS % (AUTO) 0.7 % (0-1); EOSINOPHILS # (AUTO) 0.2 X10'3 (0-0.9); EOSINOPHILS % (AUTO) 3.8 % (0-6); HEMATOCRIT 37.9 % (35.0-45.0); HEMOGLOBIN 12.6 g/dl (12.0-16.0); LYMPHOCYTES # (AUTO) 2.3 X10'3 (1.1-4.8); LYMPHOCYTES % (AUTO) 37.6 % (21-51); MEAN CORPUSCULAR HEMOGLOBIN 31.8 PG (27.0-31.0); MEAN CORPUSCULAR HGB CONC 33.2 g/dL (33.0-36.5); MEAN CORPUSCULAR VOLUME 95.9 FL (78-98); MONOCYTES # (AUTO) 0.7 X10'3 (0-0.9); MONOCYTES % (AUTO) 11.4 % (2-12); NEUTROPHILS # (AUTO) 2.9 X10'3 (1.8-7.7); NEUTROPHILS % (AUTO) 46.5 % (42-75); PLATELET COUNT 215 X10'3 (140-440); RED BLOOD COUNT 3.95 X10'6 (4.20-5.60); RED CELL DISTRIBUTION WIDTH 13.8 % (11.5-14.5); WHITE BLOOD COUNT 6.2 X10'3 (4.5-11.0)
[2021-12-12 14:19] LABS: ALANINE AMINOTRANSFERASE 75 U/L (12-78); ALBUMIN 4.1 G/DL (3.4-5.0); ALKALINE PHOSPHATASE 74 IU/L (46-116); ANION GAP 11 (8-16); ASPARTATE AMINO TRANSFERASE 61 U/L (10-37); BILIRUBIN,TOTAL 0.4 MG/DL (0.1-1.0); BLOOD UREA NITROGEN 23 MG/DL (7-18); BUN/CREATININE RATIO 22.8 (6.6-38.0); CALCIUM 9.4 MG/DL (8.5-10.1); CHLORIDE 99 MMOL/L (99-107); CREATININE 1.01 MG/DL (0.40-0.90); GLUCOSE 99 MG/DL (70-104); POTASSIUM 4.6 MMOL/L (3.5-5.1); SODIUM 138 MMOL/L (135-145); TOTAL CARBON DIOXIDE 28.5 MMOL/L (24-32); TOTAL PROTEIN 8.3 G/DL (6.4-8.2); eGFR 53 ML/MIN
[2021-12-12 14:47] VITALS: BP 113/64
== END 2021-12-12 16:58 | disposition home or self-care (01) ==
LOC: ER 10:46
DX: S50.01XA Contusion of right elbow, initial encounter (principal); R55 Syncope and collapse; E78.00 Pure hypercholesterolemia, unspecified; I10 Essential (primary) hypertension; M19.90 Unspecified osteoarthritis, unspecified site; G89.29 Other chronic pain; Z86.73 Personal history of transient ischemic attack (TIA), and cerebral infarction without residual deficits; Z90.89 Acquired absence of other organs; Z90.49 Acquired absence of other specified parts of digestive tract; Z98.890 Other specified postprocedural states; Z60.2 Problems related to living alone; Z88.8 Allergy status to other drugs, medicaments and biological substances; Z79.899 Other long term (current) drug therapy; X58.XXXA Exposure to other specified factors, initial encounter; Y93.89 Activity, other specified; Y92.89 Other specified places as the place of occurrence of the external cause; Y99.8 Other external cause status
CPT/HCPCS: 36415; 70450; 71045; 73080; 80053; 84484; 85025; 93005; 99285; J7030

== ENCOUNTER 2021-12-19 17:28 | Emergency (ER) | payer BC ==
[~2021-12-19] VITALS: Ht 172.7 cm; Wt 77.3 kg
[2021-12-19 17:49] VITALS: BP 105/54
--- NOTE | 2021-12-19 21:40 | NUR ---
NOT IN LOBBY
--- NOTE | 2021-12-19 21:59 | NUR ---
NOT IN LOBBY
== END 2021-12-19 22:00 | disposition left against medical advice (07) ==
LOC: ER 17:29
DX: R42 Dizziness and giddiness (principal); Z53.21 Procedure and treatment not carried out due to patient leaving prior to being seen by health care provider; W19.XXXA Unspecified fall, initial encounter; X58.XXXA Exposure to other specified factors, initial encounter; Y93.9 Activity, unspecified; Y92.9 Unspecified place or not applicable; Y99.9 Unspecified external cause status

== ENCOUNTER 2024-04-30 10:28 | Emergency (ER) | payer BC ==
[~2024-04-30] VITALS: Ht 172.7 cm; Wt 82.6 kg
[~2024-04-30 10:28] MED LIST changes: -AMIT-189 PO; +AMIT50TA15 PO; -OXYB5TAB16 PO; +OXYB5TAB21 PO
[2024-04-30 10:31] VITALS: TEMP 97.8
[2024-04-30] MEDS ORDERED: ketorolac trometh. 30mg/ml inj. IV ONE (11:40)
[2024-04-30] MEDS: ketorolac tromethamine 15mg/ml inj. IV ONE (11:51)
[2024-04-30] MEDS: morphine 2 MG/ML inj. syringe IV ONE (11:51)
[2024-04-30] MEDS: ondansetron/PF 4mg/2ml inj IV ONE (11:52)
[2024-04-30 13:35] VITALS: BP 113/61; PULSE 75; RESP 16; O2SAT 97
== END 2024-04-30 13:38 | disposition home or self-care (01) ==
LOC: ER 10:29
DX: M54.50 Low back pain, unspecified (principal); G45.9 Transient cerebral ischemic attack, unspecified; I25.10 Atherosclerotic heart disease of native coronary artery without angina pectoris; E78.00 Pure hypercholesterolemia, unspecified; I10 Essential (primary) hypertension; M19.90 Unspecified osteoarthritis, unspecified site; G89.29 Other chronic pain; M54.9 Dorsalgia, unspecified; Z88.8 Allergy status to other drugs, medicaments and biological substances; Z79.899 Other long term (current) drug therapy; Z98.890 Other specified postprocedural states; Z90.49 Acquired absence of other specified parts of digestive tract
CPT/HCPCS: 72100; 96374; 96375; 99284; J1885; J2270; J2405